=== PATIENT | male | born 1980 | race Caucasian/White ===

== ENCOUNTER 2021-03-14 16:40 | Emergency (ER) | payer OTHER ==
[2021-03-14 18:37] LABS: BASOPHIL 0.3 % (0-2); EOSINOPHIL 1.4 % (0-5); HCT 39.5 % (42.0-52.0); HGB 13.9 g/dl (13.2-18.0); MCH 31.3 pg (25.0-31.0); MCHC 35.2 g/dL (32.0-36.0); MPV 10.3 fL (6.0-9.5); NEUTROPHIL 65.2 % (41-80); NRBC 0; PLT 229 K/uL (150-400); RBC 4.44 M/uL (4.70-6.00); RDW 13.1 % (11.5-14.0)
[2021-03-14 19:11] LABS: ALBUMIN 3.7 g/dL (3.4-5.0); BILIRUBIN - TOTAL 0.2 mg/dL (0.2-1.0); BUN/CREAT RATIO (CALC) 12.5 RATIO; CREATININE 0.88 mg/dL (0.67-1.17); POTASSIUM 3.9 mmol/L (3.5-5.1); TOTAL PROTEIN 7.7 g/dL (6.4-8.2)
[2021-03-14 19:23] LABS: LACTIC ACID 2.2 mmol/L (0.4-1.9)
[2021-03-14] MEDS ORDERED: AUGMENTIN 875-1 EACH PO (20:55)
== END 2021-03-14 21:45 | disposition home or self-care (01) ==
LOC: FER 16:40
PROVIDERS: Internal Medicine
DX: E11.65 Type 2 diabetes mellitus with hyperglycemia (principal); J32.9 Chronic sinusitis, unspecified; F17.200 Nicotine dependence, unspecified, uncomplicated
CPT/HCPCS: 36415; 71045; 80053; 82009; 83605; 83690; 84145; 84484; 85025; 93005; J0780; J1200; J7030

== ENCOUNTER 2021-03-17 14:17 | Emergency (ER) | payer OTHER ==
[~2021-03-17 14:17] MED LIST: AUGMENTIN 875-1 EACH PO
[2021-03-17 15:10] LABS: BASOPHIL 0.4 % (0-2); HCT 41.1 % (42.0-52.0); HGB 14.3 g/dl (13.2-18.0); LYMPHOCYTE 25.4 % (15-48); MCH 31.1 pg (25.0-31.0); MCHC 34.8 g/dL (32.0-36.0); MCV 89.3 fL (78.0-100.0); MONOCYTE 9.2 % (0-12); MPV 10.4 fL (6.0-9.5); NEUTROPHIL 62.8 % (41-80); NRBC 0; PLT 245 K/uL (150-400); RDW 13.9 % (11.5-14.0); WBC 5.6 K/uL (4.0-10.5)
[2021-03-17 15:25] LABS: ALBUMIN 3.8 g/dL (3.4-5.0); BILIRUBIN - TOTAL 0.3 mg/dL (0.2-1.0); BUN/CREAT RATIO (CALC) 14.3 RATIO; CREATININE 0.77 mg/dL (0.67-1.17); POTASSIUM 4.2 mmol/L (3.5-5.1); TOTAL PROTEIN 7.8 g/dL (6.4-8.2)
[2021-03-17 15:25] LABS: BILIRUBIN NEGATIVE (NEGATIVE); BLOOD NEGATIVE Ery/uL (NEGATIVE); CLARITY CLEAR (CLEAR); COLOR YELLOW (YELLOW); GLUCOSE (U) 3+ mg/dL (NORMAL); LEUKOCYTES NEGATIVE Leu/uL (NEGATIVE); NITRITE NEGATIVE (NEGATIVE); PROTEIN NEGATIVE (NEGATIVE); UROBILINOGEN 0.2 mg/dL (0.2-1.0)
[2021-03-17 16:59] LABS: CORONAVIRUS 2019 SARS-COV-2 NEGATIVE (NEGATIVE); INFLUENZA A NAA NEGATIVE (NEGATIVE)
== END 2021-03-17 19:35 | disposition home or self-care (01) ==
LOC: FER 14:17
PROVIDERS: Emergency Medicine
DX: E10.65 Type 1 diabetes mellitus with hyperglycemia (principal); R51.9 Headache, unspecified; Z88.0 Allergy status to penicillin; Z88.6 Allergy status to analgesic agent; Z20.822 Contact with and (suspected) exposure to COVID-19
CPT/HCPCS: 36415; 80053; 81003; 85025; J0780; J1200; J1885; J7030; U0002

== ENCOUNTER → 2021-11-19 | Day surgery (SDC) | payer OTHER ==
[~2021-11-19] VITALS: Ht 180.3 cm; Wt 108.0 kg
[~2021-11-19] MED LIST changes: +ACETAMINOPHEN325 MG PO; +ASPIRIN EC81 MG PO; +COREG12.5 MG PO; +ELAVIL50 MG PO; +HUMALOG100 UNIT/2 SC; +LIPITOR 10MG TA10 MG PO; +NITROQUIK SL0.4 MG SL; +PROTONIX 40MG T40 MG PO; +RANEXA500 MG PO; +REMERON15 MG PO; +TRESIBA FL100 UNIT/1 SC; +WELLBUTRIN PO
== END | disposition home or self-care (01) ==
LOC: FAS 08:05
DX: K59.09 Other constipation (principal); K22.70 Barrett's esophagus without dysplasia; K21.00 Gastro-esophageal reflux disease with esophagitis, without bleeding; K29.60 Other gastritis without bleeding; B19.20 Unspecified viral hepatitis C without hepatic coma; R93.429 Abnormal radiologic findings on diagnostic imaging of unspecified kidney; Z20.822 Contact with and (suspected) exposure to COVID-19; I10 Essential (primary) hypertension; E10.9 Type 1 diabetes mellitus without complications; F17.200 Nicotine dependence, unspecified, uncomplicated; F31.9 Bipolar disorder, unspecified; F20.9 Schizophrenia, unspecified; F41.9 Anxiety disorder, unspecified; Z88.0 Allergy status to penicillin; Z88.6 Allergy status to analgesic agent; Z79.82 Long term (current) use of aspirin; Z79.4 Long term (current) use of insulin; Z79.899 Other long term (current) drug therapy; Z90.49 Acquired absence of other specified parts of digestive tract; Z72.89 Other problems related to lifestyle
CPT/HCPCS: J2250; J7120; U0002